=== PATIENT | female | born 1950 | race Caucasian/White ===

== ENCOUNTER → 2016-11-14 | Outpatient (CLI) | payer MEDICARE, BC ==
[~2016-11-14] MED LIST: AMARYL2 MG PO; ASCORBIC ACID250 MG PO; CALCIUM600 MG PO; COMBIVENT RESPIM4 GM IH; FEOSOL-DPS325 MG PO; GLUCOPHAGE-DPS500 MG PO; KENALOG 0.1% D454 GM TP; LOTREL PO; VITAMIN D31000 UNI1 PO; WELLBUTRIN SR150 M1 PO; XARELTO15 MG PO; XARELTO20 MG PO; XOPENEX0.31 MG/3 IH; [UNRECOGNIZED DRUG - OTHER] PO
== END | disposition home or self-care (01) ==
LOC: RAD.S 09:36
DX: Z12.31 Encounter for screening mammogram for malignant neoplasm of breast (principal)

== ENCOUNTER → 2016-11-26 | Outpatient (CLI) | payer MEDICARE, BC | END | disposition home or self-care (01) | LOC: RAD.S 11-20 08:15 | DX: R92.2 Inconclusive mammogram (principal) ==